=== PATIENT | female | born 1955 | race Caucasian/White ===

== ENCOUNTER 2019-10-23 23:23 | Inpatient (IN) | payer OTHER ==
[~2019-10-23] VITALS: Ht 165.1 cm; Wt 67.1 kg
[2019-10-23 23:50] VITALS: BP_SYST 132
--- NOTE | 2019-10-23 23:50 | NUR ---
Pt c/o rectal bleeding since 2199. Pt states that she felt like she was going to have a diarrhea BM, but noticed bright red blood with 3 "quarter sized" dark red clotts to toilet water. Denies c/o pain or discomfort.
--- NOTE | 2019-10-23 23:50 | NUR ---
PT AMBULATORY TO BED 5 FOR EVALUATION
--- NOTE | 2019-10-24 00:35 | NUR ---
Dr. Peterson at bedside to assess pt with TORREY Sawyer as Ryan.
[2019-10-24] MEDS ORDERED: NACL 0.9% 1,000 ML IV ONE (00:45)
--- NOTE | 2019-10-24 01:02 | NUR ---
# 20 gauge angiocath placed to RAC. Use of asceptic technique. Opsite placed over site. Blood return noted. Blood for lab drawn from site. Flushed with 10 cc of normal saline. No evidence of infiltration noted. Patient tolerated well.
--- NOTE | 2019-10-24 01:11 | NUR ---
Pt to CT via stretcher in stable condition.
--- NOTE | 2019-10-24 01:21 | NUR ---
Pt returns from CT. No needs verbalized.
[2019-10-24 01:24] LABS: BASOPHILS % (AUTO) 0.4 % (0.0-2.0); EOSINOPHILS # (AUTO) 0.1 K/uL (0.0-0.4); EOSINOPHILS % (AUTO) 1.1 % (0.0-4.0); HEMATOCRIT 35.5 % (36-48); HEMOGLOBIN 12.2 g/dL (12.0-16.0); LYMPHOCYTES % (AUTO) 24.7 % (20.5-51.5); MEAN CORPUSCULAR HEMOGLOBIN 38 pg (27-31); MEAN CORPUSCULAR HGB CONC 35 % (32-36); MEAN CORPUSCULAR VOLUME 110 fL (79.0-98.0); MONOCYTES # (AUTO) 0.8 K/uL (0.0-1.0); MONOCYTES % (AUTO) 10.3 % (1.7-9.3); NEUTROPHILS # (AUTO) 5.2 K/uL (1.8-7.7); NEUTROPHILS % (AUTO) 63.5 % (40.0-70.0); PLATELET COUNT (AUTO) 145 K/uL (130-430); RED BLOOD CELL COUNT(AUTO) 3.22 MIL/uL (4.2-6.2); RED CELL DISTRIBUTION WIDTH 13.6 % (9.0-15.0); WHITE BLOOD COUNT (AUTO) 8.2 K/uL (4.8-10.8)
[2019-10-24 01:29] LABS: CALCIUM 8.6 mg/dL (8.4-11.0); CREATININE 0.76 mg/dL (0.55-1.30); POTASSIUM 3.4 mmol/L (3.5-5.1)
[2019-10-24 01:34] LABS: ALBUMIN 4.1 g/dL (3.4-4.8); TOTAL BILIRUBIN 0.8 mg/dL (0.0-1.0)
[2019-10-24 01:36] LABS: PROTHROMBIN TIME 9.7 SECS (9.5-12.5)
--- NOTE | 2019-10-24 02:09 | NUR ---
Dr. Peterson at bedside to update on POC.
--- NOTE | 2019-10-24 02:30 | NUR ---
Pt up to restroom. Pt states that she had a BM of scant amount of blood. Dr. Peterson made aware.
[2019-10-24] MEDS ORDERED: IOHEXOL 100 ML IV ONE (02:39)
--- NOTE | 2019-10-24 03:30 | NUR ---
No needs verbalized at this time. VSS.
--- NOTE | 2019-10-24 04:55 | NUR ---
No staff availabe to take pt at this time. Pt ER Med/Surg hold.
--- NOTE | 2019-10-24 05:00 | NUR ---
Pt denies c/o pain or discomfort, no needs verbalized at this time. VSS, NAD.
[2019-10-24] MEDS: NACL 0.9% 1,000 ML IV SCH ×3 (05:30→22:46)
--- NOTE | 2019-10-24 06:40 | NUR ---
Pt up to restroom. States that she passed gas then scant amount of bright red blood noted to toilet water. Pt returns to bed, warm blanket provided. NS infusing at 125 mL/hr to patent and secure PIV RAC. Pt denies c/o pain or discomfort, NAD.
--- NOTE | 2019-10-24 07:05 | NUR ---
Pt report given to TORREY Torres.
--- NOTE | 2019-10-24 07:38 | NUR ---
Pt unable to remember dose of medication for med rec at this time. Pt will attempt to have family bring it in
--- NOTE | 2019-10-24 07:40 | NUR ---
Dr. Mccoy and Dr. Argueta at bedside.
--- NOTE | 2019-10-24 07:44 | NUR ---
Patient will be admitted to care of Dr Argueta. Admitted to [facility] unit. Will go to room 102B. Belongings list completed. Complete and up to date summary report printed. SBAR report to be given at bedside with opportunity for questions.
[2019-10-24] MEDS ORDERED: ONDANSETRON HCL 4 MG/2 ML VIAL IVP PRN (08:15)
[2019-10-24] MEDS ORDERED: HYDROcodone/ACETAMIN 5-325 MG TAB (NORCO/ VICODIN) PO PRN (08:15)
[2019-10-24] MEDS ORDERED: HYDROcodone/ACETAMIN 10-325 MG TAB PO PRN (08:15)
[2019-10-24] MEDS ORDERED: ALBUTEROL SULFATE 0.083% 2.5 MG/3 ML VIAL.NEB INH PRN (08:15)
[2019-10-24] MEDS ORDERED: POTASSIUM CHLORIDE 20 MEQ TAB.PRT.SR PO ONE (08:15)
--- NOTE | 2019-10-24 08:15 | NUR ---
ADMISSION NOTE Received patient from ER via gurney. Patient admitted with diagnosis of GI Bleed. Patient is awake, alert, oriented X 4. Patient oriented to hospital room, call light, toileting, pain management and safety-teach back done. Call light within reach.
[2019-10-24 08:30] VITALS: BP_SYST 132
--- NOTE | 2019-10-24 08:35 | NUR ---
CONSULTATION PAGED/CALLED Reason for Consultation: [] GI BLEED Person Who was Notified: [] DR CHAN Consulting Physician: [] DR CHAN Geodetic Advisor Specialty: [] GI Ordering Physician: [] DR OCAMPO
[2019-10-24] MEDS: PANTOPRAZOLE SODIUM 40 MG/VIAL (PROTONIX) IVP SCH ×2 (09:26→20:15)
[2019-10-24] MEDS: metroNIDAZOLE 500 mg/NS 100 ML IV SCH ×3 (09:26→22:45)
[2019-10-24] MEDS: cefTRIAXone 1 GM IVPB PREMIX 50 ML IV SCH (09:27)
[2019-10-24 09:45] VITALS: BP_SYST 107
--- NOTE | 2019-10-24 10:00 | NUR ---
Rn Rounds/blood in stool Patient remain to be alert, awake and verbally responsive, denies any pain or discomfort, patient still noted with bright red blood in stool, denies any abdominal discomfort. IVF infusing well. Call light within the reach.
[2019-10-24 11:07] VITALS: BP_SYST 120
--- NOTE | 2019-10-24 12:00 | NUR ---
RN ROUNDS on clear liquid diet, well tolerated, respiration even and unlabored. Attended to needs and anticipated. Call light within the reach.
[2019-10-24 12:18] LABS: BASOPHILS % (AUTO) 0.5 % (0.0-2.0); EOSINOPHILS # (AUTO) 0.1 K/uL (0.0-0.4); EOSINOPHILS % (AUTO) 1.3 % (0.0-4.0); HEMOGLOBIN 11.1 g/dL (12.0-16.0); LYMPHOCYTES # (AUTO) 1.9 K/uL (1.0-5.5); LYMPHOCYTES % (AUTO) 25.9 % (20.5-51.5); MEAN CORPUSCULAR HEMOGLOBIN 38 pg (27-31); MEAN CORPUSCULAR HGB CONC 35 % (32-36); MEAN CORPUSCULAR VOLUME 110 fL (79.0-98.0); MONOCYTES # (AUTO) 0.7 K/uL (0.0-1.0); MONOCYTES % (AUTO) 9.1 % (1.7-9.3); NEUTROPHILS # (AUTO) 4.7 K/uL (1.8-7.7); NEUTROPHILS % (AUTO) 63.2 % (40.0-70.0); PLATELET COUNT (AUTO) 127 K/uL (130-430); RED BLOOD CELL COUNT(AUTO) 2.91 MIL/uL (4.2-6.2); RED CELL DISTRIBUTION WIDTH 13.9 % (9.0-15.0); WHITE BLOOD COUNT (AUTO) 7.4 K/uL (4.8-10.8)
[2019-10-24 12:37] LABS: ALBUMIN 3.5 g/dL (3.4-4.8); CALCIUM 7.9 mg/dL (8.4-11.0); CREATININE 0.65 mg/dL (0.55-1.30); POTASSIUM 3.8 mmol/L (3.5-5.1); TOTAL BILIRUBIN 0.9 mg/dL (0.0-1.0)
--- NOTE | 2019-10-24 14:20 | NUR ---
RN Rounds Patient resting well, eyes closed, no moaning or grimacing noted. Respiration even and unlabored. Call light within the reach.
--- NOTE | 2019-10-24 14:50 | NUR ---
Spoke to Dr. Salmon Called and spoke to Dr. Salmon regarding med recon, agreed for lexapro 10 mg Q HS, order read back, verified, noted and carried out.
[2019-10-24] MEDS ORDERED: ESCI10TA PO (15:00)
[2019-10-24 15:01] VITALS: BP_SYST 106
--- NOTE | 2019-10-24 16:30 | NUR ---
RN ROUNDS Patient denies any pain or discomfort. Call light within the reach. IVF infusing well.
[2019-10-24] MEDS ORDERED: BISACODYL 5 MG TABLET.DR (DULCOLAX) PO ONE (17:00)
[2019-10-24] MEDS ORDERED: MAGNESIUM CITRATE 300 ML ORAL SOLUTION PO ONE (19:00)
--- NOTE | 2019-10-24 19:24 | NUR ---
Closing Notes Patient alert, awake and verbally responsive. Denies any pain or discomfort at this time. IVF infusing well. Respiration even and unlabored. Call light within the reach. SBAR report given to interlocking installermarine meteorologist at bedside.
--- NOTE | 2019-10-24 19:29 | NUR ---
OPENING NOTES Bedside report received from dayshift nurse. Patient received lying in bed, watching TV, no s/s of acute distress noted. Breathing is even and unlabored. IVF infusing well, IV site patent, no signs of infiltration or infection noted. Call light with patient. Will continue to monitor.
[2019-10-24 20:00] VITALS: BP_SYST 121
[2019-10-24] MEDS ORDERED: CITALOPRAM HYDROBROMIDE 20 MG TABLET PO SCH (21:00)
--- NOTE | 2019-10-24 21:00 | NUR ---
EMPTIED BSC Bedside commode emptied and cleaned at this time. Patient in bed at this time. All needs met. IVF infusing well. Call light with patient. Will continue to monitor.
--- NOTE | 2019-10-24 23:00 | NUR ---
ROUNDS Patient in bed sleeping at this time. No s/s of acute distress noted. Breathing even and unlabored. IVF infusing well. Call light with patient. Will continue to monitor.
[2019-10-25] VITALS: BP_SYST 118
--- NOTE | 2019-10-25 01:00 | NUR ---
ROUNDS Patient asleep at this time. No signs of discomfort noted. Chest rise and fall even bilaterally. IVF infusing well. Call light with patient. Will continue to monitor.
--- NOTE | 2019-10-25 03:00 | NUR ---
ROUNDS Patient in bed sleeping at this time. No s/s of acute distress noted. Breathing is even and unlabored. IVF infusing well. Call light with patient. Will continue to monitor.
[2019-10-25] MEDS: NACL 0.9% 1,000 ML IV SCH (04:45)
--- NOTE | 2019-10-25 05:02 | NUR ---
ROUNDS Patient in bed sleeping at this time. No signs of discomfort noted. Chest rise and fall even bilaterally. IVF infusing well. Call light with patient. Will continue to monitor.
[2019-10-25] MEDS: metroNIDAZOLE 500 mg/NS 100 ML IV SCH ×2 (06:01→14:00)
--- NOTE | 2019-10-25 06:58 | NUR ---
Nutrition Update Anibal Scale 18 noted. Pt admitted for GI Bleed, Colitis Diet: NPO BMI: 24.6 kg/m2 RD to follow per nutrition care standards.
--- NOTE | 2019-10-25 07:17 | NUR ---
CLOSING NOTES Patient picked up by GI at this time for colonoscopy. Report given to dayshift nurse. All needs met throughout shift.
[2019-10-25] MEDS ORDERED: SIMETHICONE 40 MG/0.6 ML ML ONE (07:52)
--- NOTE | 2019-10-25 08:00 | NUR ---
received awake and no c/o discomfort npo for colonoscopy vss up amb in room iv infusing taken to procedure
[2019-10-25] MEDS: MIDAZOLAM HCL 5 MG/5 ML VIAL ONE ×4 (08:03→08:16)
[2019-10-25] MEDS: fentaNYL CITRATE/PF 100 MCG/2 ML AMP ONE ×4 (08:03→08:16)
[2019-10-25 08:23] LABS: PROTHROMBIN TIME 9.8 SECS (9.5-12.5)
[2019-10-25 08:25] LABS: BASOPHILS % (AUTO) 0.6 % (0.0-2.0); EOSINOPHILS # (AUTO) 0.1 K/uL (0.0-0.4); EOSINOPHILS % (AUTO) 2.3 % (0.0-4.0); HEMATOCRIT 30.1 % (36-48); HEMOGLOBIN 10.3 g/dL (12.0-16.0); LYMPHOCYTES # (AUTO) 2.1 K/uL (1.0-5.5); LYMPHOCYTES % (AUTO) 33.2 % (20.5-51.5); MEAN CORPUSCULAR HEMOGLOBIN 38 pg (27-31); MEAN CORPUSCULAR HGB CONC 34 % (32-36); MEAN CORPUSCULAR VOLUME 111 fL (79.0-98.0); MONOCYTES # (AUTO) 0.5 K/uL (0.0-1.0); MONOCYTES % (AUTO) 8.8 % (1.7-9.3); NEUTROPHILS # (AUTO) 3.4 K/uL (1.8-7.7); NEUTROPHILS % (AUTO) 55.1 % (40.0-70.0); PLATELET COUNT (AUTO) 120 K/uL (130-430); RED BLOOD CELL COUNT(AUTO) 2.71 MIL/uL (4.2-6.2); RED CELL DISTRIBUTION WIDTH 13.7 % (9.0-15.0); WHITE BLOOD COUNT (AUTO) 6.2 K/uL (4.8-10.8)
[2019-10-25 08:35] LABS: ALBUMIN 3.2 g/dL (3.4-4.8); CREATININE 0.63 mg/dL (0.55-1.30); POTASSIUM 3.9 mmol/L (3.5-5.1); TOTAL BILIRUBIN 0.8 mg/dL (0.0-1.0)
[2019-10-25] MEDS ORDERED: DIPHENHYDRAMINE INJ 50 MG/ML VIAL ONE (08:47)
[2019-10-25] MEDS ORDERED: LEVO500T89 PO (09:12)
[2019-10-25] MEDS ORDERED: METR500T PO (09:12)
[2019-10-25] MEDS: PANTOPRAZOLE SODIUM 40 MG/VIAL (PROTONIX) IVP SCH (10:18)
[2019-10-25] MEDS: cefTRIAXone 1 GM IVPB PREMIX 50 ML IV SCH (10:19)
--- NOTE | 2019-10-25 12:00 | NUR ---
returned from colonsopy and no c/o pain vss resting and remains with iv.continue to monitor
[2019-10-25 12:07] VITALS: BP_SYST 100
[2019-10-25 15:57] VITALS: BP_SYST 110
--- NOTE | 2019-10-25 16:52 | NUR ---
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
--- NOTE | 2019-10-25 17:22 | NUR ---
daughter arrived and taken out by w/c and all belongings taken with her
== END 2019-10-25 17:22 | disposition home or self-care (01) | DRG 393 ==
LOC: SED 23:23 → SMU 10-24 04:34
PROVIDERS: ADMIT Internal Medicine Hospice and Palliative Medicine; ATTEND Internal Medicine Hospice and Palliative Medicine
PROC: 0DJD8ZZ Inspection of Lower Intestinal Tract, Via Natural or Artificial Opening Endoscopic (ICD-10-PCS; principal; 2019-10-25 08:00)
DX: K55.9 Vascular disorder of intestine, unspecified (principal); K57.91 Diverticulosis of intestine, part unspecified, without perforation or abscess with bleeding; K51.50 Left sided colitis without complications; F32.9 Major depressive disorder, single episode, unspecified; F17.210 Nicotine dependence, cigarettes, uncomplicated; E66.01 Morbid (severe) obesity due to excess calories; Z82.0 Family history of epilepsy and other diseases of the nervous system; Z90.49 Acquired absence of other specified parts of digestive tract; Z79.899 Other long term (current) drug therapy; Z68.24 Body mass index [BMI] 24.0-24.9, adult; Z71.6 Tobacco abuse counseling
CPT/HCPCS: 36415; 45378; 80053; 85025; 85610-TC; 85730-TC; 87040-TC; 87045-TC; 87046; 87177; 87230-TC; 89055; 96360; 96361; 99285; C9113; J0696; J1200; J2250; J2405; J3010; J3490; J7030; Q9967

== ENCOUNTER 2020-05-12 14:35 | Emergency (ER) | payer OTHER ==
[~2020-05-12] VITALS: Ht 167.6 cm; Wt 72.6 kg
[~2020-05-12 14:35] MED LIST: ESCI10TA PO; LEVO500T89 PO; METR500T PO
[2020-05-12 15:16] VITALS: BP_SYST 125
[2020-05-12 18:04] VITALS: BP_SYST 125
== END 2020-05-12 18:00 | disposition home or self-care (01) ==
LOC: SED 14:35
DX: M79.661 Pain in right lower leg (principal)
CPT/HCPCS: 99281

== ENCOUNTER 2021-02-09 16:03 | Emergency (ER) | payer OTHER ==
[~2021-02-09] VITALS: Ht 167.6 cm; Wt 77.1 kg
[2021-02-09 16:03] VITALS: BP_SYST 151
[2021-02-09 16:34] LABS: BASOPHILS % (AUTO) 0.8 % (0.0-2.0); EOSINOPHILS % (AUTO) 0.8 % (0.0-4.0); HEMATOCRIT 37.7 % (36-48); LYMPHOCYTES # (AUTO) 2.7 K/uL (1.0-5.5); LYMPHOCYTES % (AUTO) 43.9 % (20.5-51.5); MEAN CORPUSCULAR HEMOGLOBIN 38 pg (27-31); MEAN CORPUSCULAR HGB CONC 35 % (32-36); MEAN CORPUSCULAR VOLUME 109 fL (79.0-98.0); MONOCYTES # (AUTO) 0.5 K/uL (0.0-1.0); MONOCYTES % (AUTO) 8.4 % (1.7-9.3); NEUTROPHILS # (AUTO) 2.9 K/uL (1.8-7.7); NEUTROPHILS % (AUTO) 46.1 % (40.0-70.0); PLATELET COUNT (AUTO) 172 K/uL (130-430); RED BLOOD CELL COUNT(AUTO) 3.46 MIL/uL (4.2-6.2); RED CELL DISTRIBUTION WIDTH 13.7 % (9.0-15.0); WHITE BLOOD COUNT (AUTO) 6.2 K/uL (4.8-10.8)
[2021-02-09 16:43] LABS: CALCIUM 9.5 mg/dL (8.4-11.0); CREATININE 1.19 mg/dL (0.55-1.30); POTASSIUM 4.1 mmol/L (3.5-5.1)
[2021-02-09 16:44] LABS: PROTHROMBIN TIME 9.8 SECS (9.5-12.5)
[2021-02-09 16:49] LABS: ALBUMIN 4.5 g/dL (3.4-4.8); TOTAL BILIRUBIN 0.6 mg/dL (0.0-1.0)
[2021-02-09 20:23] VITALS: BP_SYST 133
== END 2021-02-09 20:22 | disposition home or self-care (01) ==
LOC: SED 16:03
DX: R07.89 Other chest pain (principal); Z79.899 Other long term (current) drug therapy
CPT/HCPCS: 36415; 71045; 80053; 84484; 85025; 85610-TC; 93005; 99283

== ENCOUNTER 2022-02-26 21:17 | Emergency (ER) | payer OTHER ==
[~2022-02-26] VITALS: Ht 167.6 cm; Wt 75.7 kg
[~2022-02-26 21:17] MED LIST changes: -LEVO500T89 PO; +LEVO500T90 PO
[2022-02-26 21:23] VITALS: BP_SYST 128
== END 2022-02-26 22:00 | disposition left against medical advice (07) ==
LOC: SED 21:17
DX: R05.9 Cough, unspecified (principal); Z53.21 Procedure and treatment not carried out due to patient leaving prior to being seen by health care provider